=== PATIENT | male | born 1975 | race Caucasian/White ===

== ENCOUNTER 2018-10-02 20:47 | Emergency (ER) | payer SELFPAY ==
[~2018-10-02] VITALS: Ht 167.6 cm; Wt 71.0 kg
[2018-10-02 21:13] VITALS: BP 105/73
== END 2018-10-02 23:42 | disposition left against medical advice (07) ==
LOC: ER 20:47
DX: S09.8XXA Other specified injuries of head, initial encounter (principal); Y04.0XXA Assault by unarmed brawl or fight, initial encounter; Y93.89 Activity, other specified; Y92.512 Supermarket, store or market as the place of occurrence of the external cause
CPT/HCPCS: 99281